=== PATIENT | female | born 1945 | race Caucasian/White ===

== ENCOUNTER 2018-10-20 09:26 | Emergency (ER) | payer OTHER ==
[2018-10-20 09:46] VITALS: BP 144/91; PULSE 89; TEMP 98.1; BMI 25.4
--- NOTE | 2018-10-20 11:20 | PDOC ---
History of Present Illness - General Chief Complaint: Vaginal Sxs Stated Complaint: VAGINAL PAIN Time Seen by Provider: 10/20/18 09:57 - History of Present Illness Initial Comments: 10/20/18 12:16 Chief complaint: Hemorrhoids History of present illness: Patient has had hemorrhoids for approximately one week, with discomfort in the rectal and vaginal areas, she is been taking a stool softener without relief and using an anesthetic cream applied topically. Review of systems: She admits frequency of urination without dysuria or hematuria. She admits vaginal discharge which she has attributed to her hemorrhoid medication. Past medical history: Mild hypertension controlled on metoprolol, seizure disorder on Depakote well controlled. Social/family history: Stable home, is healthy, no tobacco alcohol or nonprescription drugs Physical exam: Alert and oriented well-developed well-nourished no acute distress cheerful and cooperative Afebrile, vital signs normal HEENT clear Neck supple without bruit mass or nodes Chest clear ED regular without murmur rub or gallop Abdomen nondistended. Bowel sounds normal. Soft without mass tenderness organomegaly Extremities no CCE Skin clear, no rash, adequate turgor and wet mucous membranes Neurological intact exam: The external genitalia were normal. There is no sign of erythema or inflammation of the labia. There is no vaginal bleeding or discharge. The urinary meatus is free of lesions. There are large prolapsed hemorrhoids which are tender to palpation surrounding the anal opening. There is no active bleeding. There are no internal masses or tenderness. Impression: Hemorrhoids, no vaginal bleeding or discharge, rule out UTI Plan: Urinalysis is clear. Treatment of the hemorrhoids and follow-up with OB/ [facility]. Fully ambulatory and in no significant distress at discharge with to follow-up as directed Past History - Past Medical History Allergies/Adverse Reactions: Allergies Allergy/AdvReac Type Severity Reaction Status Date / Time No Known Allergies Allergy Verified 10/20/18 09:27 Home Medications: Ambulatory Orders Divalproex *ER* [Depakote *ER* -] 500 mg PO DAILY 10/20/18 Docusate Sodium [Colace] 100 mg PO TID #30 capsule 10/20/18 Hydrocortisone Acetate [Anusol Hc Suppository -] 25 mg RC BID #20 supp.rect Metoprolol Succinate 25 mg PO DAILY 10/20/18 Polyethylene Glycol 3350 [Miralax (For Bowel Prep) -] 17 gm PO DAILY #1 bottle 10/20/18 COPD: No Psychiatric Problems: Yes (BIPOLAR) - Reproductive History Is Patient Now?: No - Suicide/Smoking/Psychosocial Hx Smoking History: Never smoked Have you smoked in the past 12 months: No Information on smoking cessation initiated: No Hx Alcohol Use: No Drug/Substance Use Hx: No *Physical Exam - Vital Signs Last Vital Signs Temp Pulse Resp BP Pulse Ox 98.1 F 89 20 144/91 96 10/20/18 09:27 10/20/18 09:27 10/20/18 09:27 10/20/18 09:27 10/20/18 09:27 ED Treatment Course - ADDITIONAL ORDERS Additional order review: Laboratory Results 10/20/18 10:21 Urine Color Yellow Urine Appearance Clear Urine pH 5.5 Urine Protein Negative Urine Glucose (UA) Negative Urine Ketones Trace Urine Blood Negative Urine Nitrite Negative Urine Bilirubin Negative Urine Urobilinogen 0.2 Ur Leukocyte Esterase Negative *DC/Admit/Observation/Transfer Diagnosis at time of Disposition: Hemorrhoids Qualifiers: Hemorrhoid type: perianal venous thrombosis Qualified Code(s): K64.5 - Perianal venous thrombosis - Discharge Dispostion Disposition: HOME Condition at time of disposition: Stable Decision to Admit order: No - Prescriptions Prescriptions: Docusate Sodium [Colace] 100 mg PO TID #30 capsule Hydrocortisone Acetate [Anusol Hc Suppository -] 25 mg RC BID #20 supp.rect Polyethylene Glycol 3350 [Miralax (For Bowel Prep) -] 17 gm PO DAILY #1 bottle - Referrals - Patient Instructions Printed Discharge Instructions: DI for Hemorrhoids - Post Discharge Activity
== END 2018-10-20 11:30 | disposition home or self-care (01) ==
LOC: FER 09:26
DX: K64.5 Perianal venous thrombosis (principal); F31.9 Bipolar disorder, unspecified
CPT/HCPCS: 81003; 87086; 99282-25

== ENCOUNTER 2018-10-25 15:00 | Emergency (ER) | payer OTHER ==
[2018-10-25 15:03] VITALS: BMI 25.4
--- NOTE | 2018-10-25 15:04 | PDOC ---
History of Present Illness - General History Source: Patient Exam Limitations: No Limitations - History of Present Illness Initial Comments: 10/25/18 15:39 The patient is a 73 year old female, with a significant past medical history of Mild hypertension controlled on metoprolol, bipolar disorder on Depakote well controlled, who presents to the emergency department sent by her PCP Dr. Salazar to evaluate for increased BMs, abdominal discomfort, and nausea without vomiting for about a week with new onset of blood streaked stool today. The patient states she has severe hemorrhoids and has been eating small amounts of soft foods all week which she states has subsided the hemorrhoids. She states she has been moving her bowels about 4-5x a day if she does not eat and notes that eating anything prompts a bowel movement within minutes. She reports associated upper abdominal pain bilaterally and lower abdominal quakering today. She states her stools have been soft, but formed, a mix of light and dark brown in color, and today noticed a streak in the stool that appeared to be blood, however, she denies noticing any redness on the toilet. The patient denies chest pain, shortness of breath, headache and dizziness. The patient denies fever, chills, vomit, diarrhea and constipation. The patient denies dysuria, frequency, urgency and hematuria. Allergies: NKDA Past surgical history: none reported PCP - Dr. Salazar <Chelsie Morgan - Last Filed: 10/25/18 15:39> <Danica Christensen - Last Filed: 10/25/18 17:53> - General Chief Complaint: Pain, Acute Stated Complaint: ABD PAIN Time Seen by Provider: 10/25/18 15:04 Past History <Chelsie Morgan - Last Filed: 10/25/18 15:39> - Past Medical History COPD: No Psychiatric Problems: Yes (BIPOLAR) - Suicide/Smoking/Psychosocial Hx Smoking History: Never smoked Have you smoked in the past 12 months: No Hx Alcohol Use: No Drug/Substance Use Hx: No <Danica Christensen - Last Filed: 10/25/18 17:53> - Past Medical History Allergies/Adverse Reactions: Allergies Allergy/AdvReac Type Severity Reaction Status Date / Time No Known Allergies Allergy Verified 10/25/18 15:01 Home Medications: Ambulatory Orders Divalproex *ER* [Depakote *ER* -] 500 mg PO DAILY 10/20/18 Metoprolol Succinate 25 mg PO DAILY 10/20/18 Review of Systems - Review of Systems Able to Perform ROS?: Yes Comments:: 10/25/18 15:40 GENERAL/CONSTITUTIONAL: No fever or chills. No weakness. HEAD, EYES, EARS, NOSE AND THROAT: No change in vision. No ear pain or discharge. No sore throat. CARDIOVASCULAR: No chest pain or shortness of breath. RESPIRATORY: No cough, wheezing, or hemoptysis. GASTROINTESTINAL: (+) abdominal pain, nausea, increased BMs. blood in stool. No vomiting, diarrhea or constipation. GENITOURINARY: No dysuria, frequency, or change in urination. MUSCULOSKELETAL: No joint or muscle swelling or pain. No neck or back pain. SKIN: No rash NEUROLOGIC: No headache, vertigo, loss of consciousness, or change in strength/ sensation. ENDOCRINE: No increased thirst. No abnormal weight change. HEMATOLOGIC/LYMPHATIC: No anemia, easy bleeding, or history of blood clots. ALLERGIC/IMMUNOLOGIC: No hives or skin allergy. <Chelsie Morgan - Last Filed: 10/25/18 15:39> *Physical Exam - Vital Signs Last Vital Signs Temp Pulse Resp BP Pulse Ox 97.8 F 90 18 141/89 98 10/25/18 15:01 10/25/18 15:01 10/25/18 15:01 10/25/18 15:01 10/25/18 15:01 - Physical Exam Comments: 10/25/18 15:41 GENERAL: Awake, alert, and fully oriented, in no acute distress HEAD: No signs of trauma EYES: PERRLA, EOMI, sclera anicteric, conjunctiva clear ENT: Auricles normal inspection, hearing grossly normal, nares patent, oropharynx clear without exudates. Moist mucosa NECK: Normal ROM, supple, no lymphadenopathy, JVD, or masses LUNGS: Breath sounds equal, clear to auscultation bilaterally. No wheezes, and no crackles HEART: Regular rate and rhythm, normal S1 and S2, no murmurs, rubs or gallops ABDOMEN: Soft, nontender, normoactive bowel sounds. No guarding, no rebound. No masses EXTREMITIES: Normal range of motion, no edema. No clubbing or cyanosis. No cords, erythema, or tenderness NEUROLOGICAL: Cranial nerves II through XII grossly intact. Normal speech, normal gait SKIN: Warm, Dry, normal turgor, no rashes or lesions noted. <Chelsie Morgan - Last Filed: 10/25/18 15:39> - Vital Signs Last Vital Signs Temp Pulse Resp BP Pulse Ox 0/0 L 10/25/18 15:01 <Danica Christensen - Last Filed: 10/25/18 17:53> ED Treatment Course - LABORATORY CBC & Chemistry Diagram: 10/25/18 15:49 10/25/18 15:49 <Danica Christensen - Last Filed: 10/25/18 17:53> *DC/Admit/Observation/Transfer - Attestations Scribe Attestion: 10/25/18 15:41 Documentation prepared by Chelsie Morgan, acting as medical records receptionist for Danica Christensen MD, <Chelsie Morgan - Last Filed: 10/25/18 15:39> - Discharge Dispostion Decision to Admit order: No <Danica Christensen - Last Filed: 10/25/18 17:53> Diagnosis at time of Disposition: Abdominal pain Qualifiers: Abdominal location: generalized Qualified Code(s): R10.84 - Generalized abdominal pain - Discharge Dispostion Disposition: HOME Condition at time of disposition: Good - Referrals Referrals: Paloma Salazar MD [Primary Care Provider] - 3 days (call Dr. Salazar for follow up on Sunday) - Patient Instructions Printed Discharge Instructions: DI for Abdominal Pain-Adult Additional Instructions: you came to the ED for abdominal pain and decreased appetite. All of your blood work and the Cat scan are normal. We did not find a cause for your abdominal pain today, so you should follow up with Dr. Salazar for additional testing. You should return immediately to the ED for severe pain, pain with fever, severe nausea and vomiting, other new or worsening symptoms. - Post Discharge Activity Forms/Work/School Notes: Back to Work
[2018-10-25 15:22] VITALS: BP 141/89; PULSE 90; TEMP 97.8
[2018-10-25 16:09] LABS: BASO % 0.5 % (0-2.0); EOS % 0.9 % (0-4.5); HEMATOCRIT 40.6 % (32.4-45.2); HEMOGLOBIN 13.5 GM/dl (10.7-15.3); LYMPH % 22.2 % (8-40); MCHC 33.3 g/dl (32.0-36.0); MEAN CELL VOLUME 96.1 fl (80-96); MEAN PLT VOLUME 8.7 fl (7.5-11.1); MONO % 9.8 % (3.8-10.2); NEUT % 66.6 % (42.8-82.8); PLATELET COUNT 297 K/MM3 (134-434); RBC 4.23 M/mm3 (3.60-5.2); RDW 13.1 % (11.6-15.6); WHITE BLOOD COUNT 8.8 K/mm3 (4.0-10.8)
[2018-10-25 16:20] LABS: ALBUMIN 3.8 g/dl (3.4-5.0); ALK PHOS 49 U/L (45-117); ANION GAP 12 MMOL/L (8-16); BLOOD UREA NITROGEN 11 mg/dl (7-18); CALCIUM 9.1 mg/dl (8.5-10); CHLORIDE 98 mmol/L (98-107); CO2 25 mmol/L (21-32); CREATININE 0.5 mg/dl (0.55-1.3); GLUCOSE,RANDOM 98 mg/dl (74-106); POTASSIUM 3.9 mmol/L (3.5-5.1); SGOT/AST 16 U/L (15-37); SGPT/ALT 14 U/L (13-61); SODIUM 135 mmol/L (136-145); TOT PROT 7.2 g/dl (6.4-8.2)
== END 2018-10-25 18:00 | disposition home or self-care (01) ==
LOC: FER 15:00
DX: R10.84 Generalized abdominal pain (principal); I10 Essential (primary) hypertension; F31.9 Bipolar disorder, unspecified
CPT/HCPCS: 36415; 74177-TC; 80053; 83605; 85025; 99283-25

== ENCOUNTER → 2019-04-30 | Day surgery (SDC) | payer OTHER ==
--- NOTE | 2019-05-01 17:47 | PATH ---
Cytology Non-Gynecological Report Patient Name: BREANNA REMY [facility]. Rec. #: [id number] /Age/Gender: 1945 (Age: 74) / F Account: [id number] Location: RADIOLOGY INTER Taken: 04/30/2019 Received: 04/30/2019 Reported: 05/01/2019 Physicians: Sherry Abdi M.D. Specimen(s) Received LEFT THYROID FNA Clinical History Left thyroid nodule, 2.30 x 0.7 x 1.29 cm Final Diagnosis THYROID, LEFT, FINE NEEDLE ASPIRATION: SATISFACTORY FOR EVALUATION. BETHESDA CLASS II: BENIGN. CYTOLOGIC FINDINGS ARE CONSISTENT WITH A BENIGN FOLLICULAR NODULE. SMALL FOLLICULAR CELLS AND COLLOID PRESENT. Electronically Signed Marlen Villa M.D. Gross Description Received are eight direct smears, four of which are air-dried and Diff-Quik stained, and four of which are alcohol fixed and Pap stained. Also received is 20 ml of bloody formalin from which one cellblock is prepared.
== END | disposition home or self-care (01) ==
LOC: JRADIR 08:59
PROVIDERS: ATTEND Internal Medicine
PROC: 0G9K3ZX Drainage of Thyroid Gland, Percutaneous Approach, Diagnostic (ICD-10-PCS; principal; 2019-04-30)
DX: E04.1 Nontoxic single thyroid nodule (principal)
CPT/HCPCS: 76942

== ENCOUNTER 2020-07-13 07:23 | Day surgery (SDC) | payer OTHER ==
[2020-07-09 18:53] VITALS: BMI 25.4
[2020-07-13] MEDS ORDERED: OXYMETAZOLINE 0.05% NASAL SOLUTION 15 ML BOTTLE NS ONE (09:26)
[2020-07-13] MEDS ORDERED: LIDOCAINE 1%/EPI 1:100000 (20 ML MULTI DOSE VIAL) ONE (09:27)
[2020-07-13] MEDS ORDERED: BUPIVACAINE HCL/PF 0.5% (5MG/ML) 10 ML VIAL ONE (09:30)
[2020-07-13] MEDS ORDERED: LIDOCAINE HCL/PF 2% SDV 5ML VIAL ONE (09:32)
[2020-07-13] MEDS ORDERED: PROPOFOL 20 ML ONE (09:32)
[2020-07-13] MEDS ORDERED: MIDAZOLAM HCL 2 MG/2 ML SINGLE DOSE VIAL ONE (09:32)
[2020-07-13] MEDS ORDERED: EPHEDRINE SULFATE/0.9% NACL/PF 50 MG/10 ML SYRINGE NR ONE (10:16)
[2020-07-13] MEDS ORDERED: oxyCODONE HCL 5 MG TABLET PO PRN ×2 (11:13)
[2020-07-13] MEDS ORDERED: ONDANSETRON 4 MG/2 ML VIAL IVPUSH PRN (11:13)
[2020-07-13 14:03] VITALS: TEMP 98.1
[2020-07-13 14:07] VITALS: BP 129/68; PULSE 88
== END 2020-07-13 13:10 | disposition home or self-care (01) ==
LOC: FASU 07:23
PROVIDERS: ATTEND Ophthalmology
PROC: 09BU0ZZ Excision of Right Ethmoid Sinus, Open Approach (ICD-10-PCS; 2020-07-13)
PROC: 087X0DZ Dilation of Right Lacrimal Duct with Intraluminal Device, Open Approach (ICD-10-PCS; 2020-07-13)
PROC: 081X0Z3 Bypass Right Lacrimal Duct to Nasal Cavity, Open Approach (ICD-10-PCS; principal; 2020-07-13 10:08)
DX: H04.321 Acute dacryocystitis of right lacrimal passage (principal); H04.551 Acquired stenosis of right nasolacrimal duct; D23.10 Other benign neoplasm of skin of unspecified eyelid, including canthus
CPT/HCPCS: 87070; 87075; 87205; 88304-TC; 88311-TC; 94760